=== PATIENT | male | born 1975 | race Hispanic/Latino ===

== ENCOUNTER → 2021-01-18 | Outpatient (CLI) | payer MEDICARE | END | disposition home or self-care (01) | LOC: SHCH 13:10 | PROVIDERS: ATTEND Internal Medicine | DX: I49.01 Ventricular fibrillation (principal); R06.02 Shortness of breath | CPT/HCPCS: 93306; 93356 ==

== ENCOUNTER 2024-05-11 07:32 | Observation (INO) | payer MEDICARE ==
[~2024-05-11] VITALS: Ht 167.6 cm; Wt 109.8 kg
[~2024-05-11 07:32] MED LIST: DRON400T7 PO; ESCI-8 PO; FENO145T26 PO; HYDR25TA PO; IRBE300T26 PO; LEVE750T66 PO; METF-446 PO; METO-391 PO; PANT40TA54 PO; PRAV40TA3 PO; RIVA20TA PO
[2024-05-11 08:29] LABS: HEMATOCRIT 51.2 % (42-54); MEAN CORPUSCULAR HEMOGLOBIN 27.4 pg (27.0-33.0); MEAN CORPUSCULAR HGB CONC 33.2 g/dL (32.0-36.0); MEAN CORPUSCULAR VOLUME 82.6 fL (79-99); PLATELET COUNT (AUTO) 309 K/uL (130-400); RED CELL DISTRIBUTION WIDTH 14.6 % (11.0-15.5); WHITE BLOOD COUNT (AUTO) 5.9 K/uL (4.8-10.8)
[2024-05-11 08:37] LABS: BASOPHILS # (AUTO) 0.04 K/uL (0.00-0.20); BASOPHILS % (AUTO) 0.7 % (0.0-5.0); EOSINOPHILS # (AUTO) 0.18 K/uL (0.00-0.70); IMMATURE GRANULOCYTE ABSOLUTE 0.02 K/uL (0-1); LYMPHOCYTES # (AUTO) 2.6 K/uL (1.0-4.8); LYMPHOCYTES % (AUTO) 44.2 % (21.0-51.0); MONOCYTES # (AUTO) 0.5 K/uL (0.1-1.0); MONOCYTES % (AUTO) 8.4 % (3.0-13.0); NEUTROPHILS # (AUTO) 2.6 K/uL (1.8-7.7); NEUTROPHILS % (AUTO) 43.4 % (40.0-77.0)
[2024-05-11 08:39] LABS: CREATININE 1.1 mg/dL (0.5-1.3); POTASSIUM 3.5 mmol/L (3.5-5.1)
[2024-05-11] MEDS: soTALol HCL 80 MG TABLET PO SCH (08:48)
[2024-05-11 08:52] LABS: ALBUMIN 4.6 g/dL (3.5-5.0); BILIRUBIN,TOTAL 0.4 mg/dL (0.2-1.0); MAGNESIUM 1.8 mg/dL (1.80-2.40); THYROID STIMULATING HORMONE 4.62 uIU/mL (0.36-3.74); TOTAL PROTEIN, SERUM 8.9 g/dL (6.0-8.3)
[2024-05-11] MEDS: RIVAROXABAN 2.5 MG TABLET PO SCH (08:56)
[2024-05-11] MEDS: metOPROLol sucCINATE 25 MG TAB.SR.24H PO SCH (08:56)
[2024-05-11] MEDS: FENOFIBRATE NANOCRYSTALLIZED 145 MG TAB PO SCH (09:03)
[2024-05-11] MEDS: PANTOPrazole 40 MG TAB DR PO SCH (09:03)
[2024-05-11] MEDS: LoSARTan 100 MG TABLET PO SCH (09:03)
[2024-05-11] MEDS: hydroCHLOROthiazide 25 MG TABLET PO SCH (09:03)
[2024-05-11] MEDS: atorVAStatin 10 MG TABLET PO SCH (09:09)
[2024-05-11 11:03] VITALS: BP 148/85; PULSE 89; RESP 16; TEMP 98.7
[2024-05-11 15:30] VITALS: O2SAT 95
[2024-05-11 16:15] VITALS: BP 139/86; PULSE 82; RESP 16; TEMP 98.2
[2024-05-11 19:57] VITALS: BP 128/85; PULSE 93; RESP 18; TEMP 98.4
[2024-05-11 20:00] VITALS: O2SAT 95
[2024-05-11] MEDS: Escitalopram Oxalate 10 MG PO SCH (21:00)
[2024-05-11] MEDS: leveTIRACEtam 250 MG TABLET PO SCH (21:08)
[2024-05-12] VITALS (12 sets, daily range): BP systolic 107–139; BP diastolic 51–89; PULSE 56–90; RESP 12–18; TEMP 97.8–98.4; O2SAT 95
[2024-05-12 03:28] LABS: BASOPHILS # (AUTO) 0.03 K/uL (0.00-0.20); BASOPHILS % (AUTO) 0.5 % (0.0-5.0); EOSINOPHILS # (AUTO) 0.13 K/uL (0.00-0.70); EOSINOPHILS % (AUTO) 2.2 % (0.0-8.0); HEMATOCRIT 46.1 % (42-54); IMMATURE GRANULOCYTE ABSOLUTE 0.02 K/uL (0-1); LYMPHOCYTES # (AUTO) 2.7 K/uL (1.0-4.8); LYMPHOCYTES % (AUTO) 45.3 % (21.0-51.0); MEAN CORPUSCULAR HEMOGLOBIN 27.5 pg (27.0-33.0); MEAN CORPUSCULAR HGB CONC 33.4 g/dL (32.0-36.0); MEAN CORPUSCULAR VOLUME 82.3 fL (79-99); MONOCYTES # (AUTO) 0.6 K/uL (0.1-1.0); MONOCYTES % (AUTO) 9.3 % (3.0-13.0); NEUTROPHILS # (AUTO) 2.5 K/uL (1.8-7.7); NEUTROPHILS % (AUTO) 42.4 % (40.0-77.0); PLATELET COUNT (AUTO) 252 K/uL (130-400); RED CELL DISTRIBUTION WIDTH 14.2 % (11.0-15.5); WHITE BLOOD COUNT (AUTO) 5.9 K/uL (4.8-10.8)
[2024-05-12 03:50] LABS: BILIRUBIN,TOTAL 0.5 mg/dL (0.2-1.0); CREATININE 1.3 mg/dL (0.5-1.3); POTASSIUM 3.2 mmol/L (3.5-5.1); TOTAL PROTEIN, SERUM 7.8 g/dL (6.0-8.3)
[2024-05-12] MEDS ORDERED: proPOFol 10 MG/ML 20ML VIAL IV ONE (07:52)
[2024-05-12] MEDS ORDERED: phenylEPHRINE HCL 10 MG/ML 1ML VIAL IV ONE (07:53)
[2024-05-12] MEDS ORDERED: RIVA2.5T PO (08:22)
[2024-05-12] MEDS ORDERED: SOTA80TA PO (08:22)
== END 2024-05-12 10:30 | disposition home or self-care (01) ==
LOC: EDH 07:32 → EDHIP 07:33 → 2DH 11:03
PROVIDERS: ADMIT Internal Medicine Cardiovascular Disease; ATTEND Internal Medicine Cardiovascular Disease
DX: I48.19 Other persistent atrial fibrillation (principal); I48.92 Unspecified atrial flutter; E11.9 Type 2 diabetes mellitus without complications; I10 Essential (primary) hypertension; Z79.899 Other long term (current) drug therapy
CPT/HCPCS: 84443; 83735; 80053 ×2; 85025 ×2; 82948 ×3; 36415 ×2; 93005 ×3; 92960; G0378 ×26; G0379; J2704; J2371; J3490